=== PATIENT | female | born 1990 | race Caucasian/White ===

== ENCOUNTER → 2017-12-05 | Outpatient (CLI) | payer OTHER | END | disposition home or self-care (01) | LOC: C.LABSPEC 17:30 | PROVIDERS: ATTEND Obstetrics & Gynecology | DX: Z34.01 Encounter for supervision of normal first pregnancy, first trimester (principal) ==

== ENCOUNTER → 2017-12-12 | Outpatient (CLI) | payer OTHER | END | disposition home or self-care (01) | LOC: C.PAPS 14:18 | PROVIDERS: ATTEND Obstetrics & Gynecology | DX: Z34.01 Encounter for supervision of normal first pregnancy, first trimester (principal) ==

== ENCOUNTER → 2017-12-12 | Outpatient (CLI) | payer OTHER ==
[2017-12-12 14:29] LABS: BASO % 0.2 %; BASO ABS # 0.02 K/uL (0-0.2); EOS % 0.5 %; EOS ABS # 0.04 K/uL (0-0.5); HEMATOCRIT 37.8 % (37-47); HEMOGLOBIN 13.5 g/dL (12.0-16.0); IG# 0.02 K/uL (0.00-0.02); LYMPH % 24.4 %; LYMPH ABS # 2.12 K/uL (1.2-3.4); MEAN CORPUSCULAR HEMOGLOBIN 29.3 pg (25-34); MEAN CORPUSCULAR HGB CONC 35.7 g/dl (32-36); MEAN PLATELET VOLUME 10.8 fL (7.4-10.4); MONO % 6.8 %; MONO ABS # 0.59 K/uL (0.11-0.59); NEUT % 67.9 %; PLATELET COUNT 268 K/uL (130-400); RED CELL DISTRIBUTION WIDTH SD 39.4 fL (36.4-46.3); WHITE BLOOD COUNT 8.69 K/uL (4.8-10.8)
== END | disposition home or self-care (01) ==
LOC: C.LAB1850 12:32
PROVIDERS: ATTEND Obstetrics & Gynecology
DX: Z34.01 Encounter for supervision of normal first pregnancy, first trimester (principal)

== ENCOUNTER 2020-06-04 07:38 | Inpatient (IN) ==
[2020-06-04] MEDS ORDERED: OXYTOCIN 30 UNITS/500 ML BAG IV PRN ×3 (07:46→16:46)
[2020-06-04 08:22] LABS: Hematocrit (blood only) 38.1 % (37-47); Hemoglobin 12.8 g/dL (12.0-16.0); Mean Corpuscular Hemoglobin 29.9 pg (25-34); Mean Platelet Volume 11.8 fL (7.4-10.4); Platelet Count 188 K/uL (130-400); RDW Coefficient of Variation 13.4 % (11.5-14.5); RDW Standard Deviation 43.5 fL (36.4-46.3); Red Blood Count 4.28 M/uL (4.2-5.4); White Blood Count 9.35 K/uL (4.8-10.8)
[2020-06-04 08:24] LABS: Mean Corpuscular Hgb Conc 33.6 g/dL (32-36)
[2020-06-04] MEDS: LACTATED RINGER'S 1,000 ML IV PRN ×2 (08:56→14:03)
--- NOTE | 2020-06-04 08:59 | History & Physical Report ---
Date of Service June 04, 2020 Assessment & Plan (1) Encounter for planned induction of labor: Admission and Anticipated Discharge Date Admission Date: June 04, 2020 IUP at 41 weeks for IOL. cervical balloon successful will now proceed with pitocin induction. anticipate vaginal History of Present Illness Primary Care Provider: Clif Torres MD Patient is a 29 yo white female EDC 05/29/20 who presents for post term induction of labor. She had a cervical balloon placed last night that fell out about 0130. She had some contractions prior to the balloon falling out. (-) SPROM, (-) bloody show (-) GBS. Blood type A negative Allergies Allergy/AdvReac Type Severity Reaction Status Date / Time No Known Allergies Allergy Verified 06/03/20 19:43 Home Medications Home Medications Medication Instructions Recorded Confirmed Type prenat.vits,gerard,cer-bdlg-svftq 1 tab PO DAILY 10/15/19 06/04/20 History breast pump #1 ea 03/11/20 06/03/20 Rx Patient History Medical History Active labor at term Bladder infection Encounter for care or examination of lactating mother History of chicken pox History of UTI Normal course Post-term with 37 weeks completed gestation Rh negative state in antepartum period (spontaneous vaginal delivery) 07/2018 [facility] Surgical History History of colposcopy [place] teeth removed Family History Grandfather (Maternal) Heart disease Hypertension Grandfather (Paternal) Heart disease Mother Hypertension Social History Smoking Status: Never smoker Second Hand Exposure: No; Do You Dip or Chew Tobacco: No; Tobacco Cessation Education Requested by Patient: No Hx Alcohol Use: No Hx Substance Use: No Preferred Language: Latvian Communication Ability: Effective Unit Tender Required: No Beliefs That Will Affect Care: None marital status: marital status details: Everardo Benitez (25) [phone] Current Living Situation: Spouse Current Living Situation Comment: lives with spouse, daughter, dogs current occupational status: employed 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 Other Information That Helps Us Care for You: No Feels Safe at Home: Yes Safety Concerns: Feels Safe At This Time Assistive Devices: None Review of Systems All systems reviewed & are unremarkable except as noted in HPI & below Physical Exam Constitutional: WD/WN, vitals as above Respiratory: normal respiratory effort, lungs clear to auscultation Cardiovascular: RRR, no murmur, no edema Gastrointestinal (Abdomen): normal bowel sounds, soft, nontender, no hepatosplenomegaly Psychiatric: A+Ox3, euthymic affect Genitourinary: OB Exam Abdomen: + vertex, + estimated weight (8-9 pounds) and + irregular contractions Manual OB Exam: + cervical dilation 4 cm, + cervical effacement 80% and + station high OB Exam Monitor Tracing: + external FHT monitor used, + external uterine monitor used, + category I and + normal FHT variability Results & Data ([facility]) Vital Signs (Past 12 Hours) Vital Signs Temp Pulse Resp BP 06/04/20 08:05 98.4 F 80 18 123/70 06/04/20 07:55 80 123/70 Coding Level of Care Code None Diagnoses Encounter for planned induction of labor Z34.90
[2020-06-04] MEDS ORDERED: ePHEDrine sulfate 50 MG/ML AMP ONE (13:49)
[2020-06-04] MEDS ORDERED: SODIUM CHLORIDE 0.9% INJ 10 ML VIAL ONE (13:49)
[2020-06-04] MEDS ORDERED: fentaNYL citrate 100 MCG/2 ML VIAL ONE (13:50)
[2020-06-04] MEDS ORDERED: BUPIVACAINE 0.25% 30 ML VIAL ONE (13:50)
[2020-06-04] MEDS ORDERED: fentaNYL 2MCG/ML ROPIVACAINE 1.25MG/ML 100 ML BAG EPI ONE (13:51)
--- NOTE | 2020-06-04 14:04 | Anesthesiology Consultation ---
Date of Service June 04, 2020 Assessment & Plan (1) Encounter for pre-operative examination: Chart Review Chart Review: Acceptable Risk for Labor Epidural Consults Requested none ASA ASA2 Proposed Anesthesia Anesthesia Type: Labor Epidural Risk / Benefits Reviewed With: PT / POA / Parent / Guardian, Accepts Plan and Informed Consent Obtained History Height/Weight Height: 5 ft 7 in Weight: 86.183 kg Allergies Allergy/AdvReac Type Severity Reaction Status Date / Time No Known Allergies Allergy Verified 06/03/20 19:43 Medications Home Medications Medication Instructions Recorded Confirmed Last Taken prenat.vits,gerard,mlf-crmd-xuyaw 1 tab PO DAILY 10/15/19 06/04/20 06/03/20 21:30 breast pump #1 ea 03/11/20 06/03/20 Unknown Active Medications Generic Name Dose Route Start Last Admin Trade Name Freq PRN Reason Stop Dose Admin Lactated Ringer's 1,000 mls @ 125 mls/hr 06/04/20 07:46 06/04/20 14:03 Lr IV 06/06/20 07:45 999 mls/hr .Q8H PRN Administration L&D Protocol Protocol Oxytocin 30 units in 500 mls @ 11 mls/hr 06/04/20 07:49 06/04/20 12:35 Pitocin IV 06/06/20 07:48 0.66 units/hr .Q24H PRN 11 mls/hr Labor Induction/Augmentation Titration Protocol 0.66 UNITS/HR Past Medical History Medical History Active labor at term Bladder infection Encounter for care or examination of lactating mother History of chicken pox History of UTI Normal course Post-term with 37 weeks completed gestation Rh negative state in antepartum period (spontaneous vaginal delivery) 07/2018 [facility] Exercise / Class Metabolic Activity II 4-5 Yardwork/Stairs/Walk up hill Past Family History Family History Grandfather (Maternal) Heart disease Hypertension Grandfather (Paternal) Heart disease Mother Hypertension Past Surgical History Surgical History History of colposcopy [place] teeth removed Past Anesthesia History No Hx of Anesthesia Complications and No Family Hx of Anesthesia Complications History of PONV No Hx of PONV and No Hx of Motion Sickness Social History Smoking Status: Never smoker Do You Dip or Chew Tobacco: No Hx Alcohol Use: No Hx Substance Use: No substance use type: does not use Physical Exam Vital Signs Last Vital Signs Temp 98.4 F 06/04/20 08:05 Pulse 65 06/04/20 11:29 Resp 18 06/04/20 08:05 BP 116/67 06/04/20 11:29 ENMT Mouth: no dentition abnormality Thyromental Distance: > or= 3.5 Finger Breadths Mallampati Class: II Neck normal visual inspection Respiratory normal respiratory effort Auscultation: lungs clear to auscultation bilaterally Cardiovascular Rate/Rhythm: regular rate and regular rhythm Testing Laboratory Results 06/04/20 08:12
[2020-06-04] MEDS ORDERED: NALOXONE HCL 0.4 MG/1 ML VIAL/CARP IV PRN (14:31)
[2020-06-04] MEDS ORDERED: fentaNYL 2MCG/ML ROPIVACAINE 1.25MG/ML 100 ML BAG EPI PRN (14:31)
[2020-06-04] MEDS ORDERED: NALOXONE HCL 1 MG in SODIUM CHLORIDE 0.9% 1000ML 1,000 ML IV PRN (14:31)
[2020-06-04] MEDS ORDERED: diphenhydrAMINE 50 MG/ML VIAL IV PRN (14:31)
[2020-06-04] MEDS ORDERED: ePHEDrine sulfate 50 MG/ML AMP IV PRN (14:31)
[2020-06-04] MEDS ORDERED: ONDANSETRON INJ 2 MG/ML 2 ML VIAL IV PRN (14:31)
[2020-06-04] MEDS ORDERED: BENZOCAINE 20% AER SPR 82.5 GM CAN EXT PRN (16:46)
[2020-06-04] MEDS ORDERED: bisacodyL 10 MG SUPP PR PRN (16:46)
[2020-06-04] MEDS ORDERED: ACETAMINOPHEN 325 MG TAB PO PRN (16:46)
[2020-06-04] MEDS ORDERED: HYDROCORTISONE ACETATE 25 MG SUPP PR PRN (16:46)
[2020-06-04] MEDS ORDERED: SUPERCREAM 0.870% 15 GM JAR EXT PRN (16:46)
[2020-06-04] MEDS ORDERED: DIPHTHERIA/TETANUS/PERTUSSIS 0.5 ML SYR/VIAL IM ONE (16:46)
--- NOTE | 2020-06-04 19:52 | Delivery Summary ---
Vaginal Delivery Summary Date of Service June 04, 2020 patient is a 29-year-old 2 para 1-0-0-1 white female who presents for induction of labor for postterm . She had a cervical balloon placed successfully the night prior to the induction. She received Pitocin augmentation of her labor, and membranes were ruptured for clear fluid. She received effective epidural analgesia and progressed to full dilation. She pushed effectively over intact perineum for delivery of a viable female infant. The infant was vigorous and crying spontaneously. After 1 minute, the cord was clamped & cut. the placenta was expressed intact with a three-vessel cord. Perineum was examined and noted to be intact. Post bleeding was controlled with dilute Pitocin. Estimated blood loss is 200 cc. Mother and infant were doing well after delivery. [facility] Vaginal Delivery Charge Vaginal Delivery Codes: 51511 global code for the antepartum, delivery, and post-
[2020-06-04] MEDS: DOCUSATE SODIUM 100 MG CAP PO SCH (20:40)
[2020-06-05] MEDS: IBUPROFEN 600 MG TAB PO PRN ×4 (00:11→16:43)
--- NOTE | 2020-06-05 06:25 | Obstetrical Progress Note ---
Date of Service <Adalberto Barrett MD - Last Filed: 06/05/20 07:02> June 05, 2020 Assessment & Plan <Adalberto Barrett MD - Last Filed: 06/05/20 07:02> (1) : - PNL: Rh neg (received Rhogam), RI, GBS neg, COVID neg - Feels well today. Eating well, voiding well, ambulating well - Pain well controlled with ibuprofen 600mg Q4H PRN - Routine care -- OOB, ambulation, diet progression as tolerated - After discharge will have 6 week follow-up with Dr. Gilliland - Plan for discharge today (2) Need for rhogam due to Rh negative mother: Day #:: 1 Subjective <Adalberto Barrett MD - Last Filed: 06/05/20 07:02> Alma is a 29 y/o female who is PPD #1 following at 40 5/7 weeks. She reports feeling well overall this morning. Light abdominal cramping and minimal pain well managed on analgesics. Voiding well. Tolerating meals overnight without difficulty. Patient has been able to ambulate some. Has persistent lochia with some improvement this morning. Currently . Review of Systems Denies fever or chills. Denies shortness of breath or cough. Denies chest pain. Denies breast pain. Denies dysuria. Denies leg pain or leg swelling. Denies headache or changes in vision. Physical Exam <Adalberto Barrett MD - Last Filed: 06/05/20 07:02> General: Alert, oriented. No acute distress. Cardiac: Regular rate and rhythm. No murmurs. Respiratory: Clear to auscultation bilaterally a/p, no wheezes/rales/rhonchi. No increased work of breathing. Symmetrical chest rise. No respiratory distress. Abdomen: Soft, nontender, nondistended. Bowel sounds present. Uterus: Uterine fundus firm, palpable 1 cm below umbilicus. Lower Extremities: No lower extremity edema or swelling. No deep calf pain. Abhilash's negative bilaterally. Results & Data ([facility]) <Adalberto Barrett MD - Last Filed: 06/05/20 07:02> Vital Signs (Past 12 Hours) Vital Signs Temp Pulse Pulse Resp BP BP Pulse Ox 06/05/20 04:20 36.6 C 65 15 137/77 96 06/05/20 00:00 37.0 C 72 17 127/75 96 06/04/20 19:35 37.0 C 80 16 118/62 96 06/04/20 18:51 72 119/60 06/04/20 18:50 72 18 119/60 06/04/20 18:36 98 H 123/63 <Blanquita Mansfield MD, FACOG - Last Filed: 06/05/20 07:43> Co-Signing Physician Notes Resident Physician Supervision Note: I was present with Dr. Osman during the history and exam. I discussed the case with the resident and agree with the findings and plan as documented in the note. Any exceptions or clarifications are listed here: [None] Documented By: Blanquita Mansfield MD, FACOG Resident Activity Tracking <Adalberto Barrett MD - Last Filed: 06/05/20 07:02> Resident Involvement: Resident Care Provided Care Provided: OB Delivery
[2020-06-05 06:52] LABS: Hematocrit (blood only) 35.2 % (37-47); Hemoglobin 11.9 g/dL (12.0-16.0); Mean Corpuscular Hemoglobin 30.2 pg (25-34); Mean Corpuscular Hgb Conc 33.8 g/dL (32-36); Mean Corpuscular Volume 89.3 fL (80-100); Mean Platelet Volume 11.6 fL (7.4-10.4); Platelet Count 136 K/uL (130-400); RDW Coefficient of Variation 13.3 % (11.5-14.5); RDW Standard Deviation 43.5 fL (36.4-46.3); Red Blood Count 3.94 M/uL (4.2-5.4); White Blood Count 10.17 K/uL (4.8-10.8)
[2020-06-05] MEDS: DOCUSATE SODIUM 100 MG CAP PO SCH (07:29)
[2020-06-05] MEDS ORDERED: PRENATAL VITAMIN 1 TAB PO SCH (08:00)
[2020-06-05 11:55] VITALS: TEMP 98.1
[2020-06-05 16:56] VITALS: BP 126/72; PULSE 65; O2SAT 96
[2020-06-05] MEDS ORDERED: bisacodyL 5 MG TABEC PO SCH (20:00)
== END 2020-06-05 17:40 | disposition home or self-care (01) | DRG 807 ==
LOC: 4S1 07:38 → 4S2 19:15

== ENCOUNTER 2022-06-01 07:44 | Inpatient (IN) ==
[2022-06-01] MEDS ORDERED: OXYTOCIN 30 UNITS/500 ML BAG IV PRN ×3 (07:58→18:27)
[2022-06-01] MEDS ORDERED: LIDOCAINE 1% LOCAL 20 ML VIAL INFIL PRN (07:58)
[2022-06-01 08:41] LABS: Hematocrit (blood only) 35.8 % (34.1-44.9); Hemoglobin 12.6 g/dl (12.0-16.0); Mean Corpuscular Hemoglobin 30.2 pg (25.0-34.0); Mean Corpuscular Hgb Conc 35.2 g/dL (32.0-36.0); Mean Corpuscular Volume 85.9 fL (80.0-100.0); Mean Platelet Volume 11.8 fL (9.4-12.3); Platelet Count 161 K/uL (130-400); RDW Coefficient of Variation 13.3 % (11.5-14.5); RDW Standard Deviation 41.7 fL (36.4-46.3); Red Blood Count 4.17 M/uL (3.93-5.22)
[2022-06-01] MEDS: LACTATED RINGER'S 1,000 ML IV PRN ×3 (09:12→16:46)
--- NOTE | 2022-06-01 10:33 | History & Physical Report ---
Date of Service June 01, 2022 Assessment & Plan (1) Encounter for supervision of normal in multigravida: Plan: IUP at 39 weeks in mulitparous female for IOL pitocin augmentation begun, will AROM when adequate pattern of contractions established epidural analgesia when requested anticipate vaginal . Admission and Anticipated Discharge Date Admission Date: June 01, 2022 History of Present Illness Primary Care Provider: Clif Torres MD Patient is a 31 yo female EDC 06/04/22 who presents at 39 + weeks for IOL because of suspected macrosomia and patient's request. a cervical balloon was placed last night and fell out almost immediately after insertion. no contractions or leaking fluid over night although there has been some bloody show. GBS-negative, blood type A-negative. complicated by presence of a placental cole and suspected macrosomia. 36 week EFW is 90%tile with AC measuring 98%tile. Allergies Allergy/AdvReac Type Severity Reaction Status Date / Time No Known Allergies Allergy Verified 05/31/22 10:51 Home Medications Medication Instructions Recorded Confirmed Type prenat.vits,gerard,tnz-ymsu-hrwsm 1 tab PO DAILY 10/15/19 06/01/22 History Patient History Medical History Active labor at term Bladder infection Encounter for care or examination of lactating mother History of chicken pox History of UTI Normal course Post-term with 37 weeks completed gestation Rh negative state in antepartum period (spontaneous vaginal delivery) Surgical History History of colposcopy [place] teeth removed Family History (Updated 10/23/21 @ 09:53 by Viridiana Mcdonald) Grandfather (Maternal) Heart disease Hypertension Grandfather (Paternal) Heart disease Mother Hypertension Denies family history of Ovarian cancer Breast cancer Colorectal cancer Social History (Updated 10/23/21 @ 09:53 by Viridiana Mcdonald) Smoking Status: Never smoker Second Hand Exposure: No; Hx Alcohol Use: No Hx Substance Use: No Preferred Language: Kyrgyz Communication Ability: Effective Comprehensive Advisor Required: No Beliefs That Will Affect Care: None marital status: marital status details: Everardo Emmanuel (27) [phone] Current Living Situation: Spouse Current Living Situation Comment: lives with spouse, daughters, dogs current occupational status: employed 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 Other Information That Helps Us Care for You: No Feels Safe at Home: Yes Safety Concerns: Feels Safe At This Time Assistive Devices: None Review of Systems All systems reviewed & are unremarkable except as noted in HPI & below Physical Exam Constitutional: WD/WN, vitals as above Psychiatric: A+Ox3, euthymic affect Genitourinary: OB Exam Abdomen: + vertex, + estimated weight (8-9 pounds) and + irregular contractions Manual OB Exam: + cervical dilation 3 cm, + cervical effacement 70% and + station high (-3) OB Exam Monitor T racing: + external FHT monitor used, + external uterine monitor used, + category I and + normal FHT variability Results & Data ([facility]) Vital Signs (Past 12 Hours) Vital Signs Temp Pulse Resp BP 06/01/22 08:07 18 06/01/22 10:25 67 118/62 06/01/22 08:30 20 06/01/22 08:30 98.2 F 20 06/01/22 08:30 20 06/01/22 08:30 98.2 F 20 06/01/22 08:04 101 H 137/75 Coding Level of Care Code None Diagnoses Encounter for supervision of normal in multigravida Z34.80
[2022-06-01] MEDS ORDERED: ePHEDrine sulfate 50 MG/ML AMP ONE (12:59)
[2022-06-01] MEDS ORDERED: fentaNYL citrate 100 MCG/2 ML VIAL ONE (13:00)
[2022-06-01] MEDS ORDERED: SODIUM CHLORIDE 0.9% INJ 10 ML VIAL ONE (13:00)
[2022-06-01] MEDS ORDERED: BUPIVACAINE 0.25% 30 ML VIAL ONE (13:00)
[2022-06-01] MEDS ORDERED: fentaNYL 2MCG/ML ROPIVACAINE 1.25MG/ML 100 ML BAG EPI ONE (13:01)
[2022-06-01] MEDS ORDERED: LIDOCAINE 2%/EPINEPHRINE 1:200,000 20 ML SDV ONE (13:01)
--- NOTE | 2022-06-01 14:13 | Anesthesiology Consultation ---
Date of Service June 01, 2022 Assessment & Plan Chart Review Chart Review: Acceptable Risk for Labor Epidural Consults Requested none ASA ASA2 Proposed Anesthesia Anesthesia Type: Labor Epidural Risk / Benefits Reviewed With: PT / POA / Parent / Guardian, Accepts Plan and Informed Consent Obtained History Height/Weight Height: 5 ft 7 in Weight: 90.265 kg Allergies Allergy/AdvReac Type Severity Reaction Status Date / Time No Known Allergies Allergy Verified 05/31/22 10:51 Medications Home Medications Medication Instructions Recorded Confirmed Last Taken prenat.vits,gerard,wse-tczr-wddrt 1 tab PO DAILY 10/15/19 06/01/22 05/30/22 Active Medications Generic Name Dose Route Start Last Admin Trade Name Freq PRN Reason Stop Dose Admin Oxytocin 30 units in 500 mls @ 11 mls/hr 06/01/22 07:58 06/01/22 12:33 Pitocin IV 06/03/22 07:57 0.66 units/hr .Q24H PRN 11 mls/hr Labor Induction/Augmentation Titration Protocol 0.66 UNITS/HR Lactated Ringer's 1,000 mls @ 125 mls/hr 06/01/22 07:58 06/01/22 09:12 Lr IV 06/03/22 07:57 125 mls/hr .Q8H PRN Administration L&D Protocol Protocol Past Medical History Medical History Active labor at term Bladder infection Encounter for care or examination of lactating mother History of chicken pox History of UTI Normal course Post-term with 37 weeks completed gestation Rh negative state in antepartum period (spontaneous vaginal delivery) 07/2018 [facility] Exercise / Class Metabolic Activity II 4-5 Yardwork/Stairs/Walk up hill Past Family History Family History Grandfather (Maternal) Heart disease Hypertension Grandfather (Paternal) Heart disease Mother Hypertension Denies family history of Ovarian cancer Breast cancer Colorectal cancer Past Surgical History Surgical History History of colposcopy [place] teeth removed Past Anesthesia History No Hx of Anesthesia Complications and No Family Hx of Anesthesia Complications History of PONV No Hx of PONV and No Hx of Motion Sickness Social History Smoking Status: Never smoker Hx Alcohol Use: No Hx Substance Use: No substance use type: does not use Physical Exam Vital Signs Last Vital Signs Temp 98.1 F 06/01/22 11:00 Pulse 66 06/01/22 14:05 Resp 20 06/01/22 10:00 BP 117/69 06/01/22 12:36 Pulse Ox 97 06/01/22 14:05 ENMT Mouth: no dentition abnormality Thyromental Distance: > or= 3.5 Finger Breadths Mallampati Class: II Neck normal visual inspection Respiratory normal respiratory effort Auscultation: lungs clear to auscultation bilaterally Cardiovascular Rate/Rhythm: regular rate and regular rhythm Testing Laboratory Results 06/01/22 08:28 Blood Type A Negative 06/01/22 08:28 Antibody Screen NEGATIVE 06/01/22 08:28
[2022-06-01] MEDS ORDERED: NALBUPHINE HCL INJ 10 MG/ML AMP IV PRN (14:33)
[2022-06-01] MEDS ORDERED: NALOXONE HCL 1 MG in SODIUM CHLORIDE 0.9% 1000ML 1,000 ML IV PRN (14:33)
[2022-06-01] MEDS ORDERED: fentaNYL 2MCG/ML ROPIVACAINE 1.25MG/ML 100 ML BAG EPI PRN (14:33)
[2022-06-01] MEDS ORDERED: diphenhydrAMINE 50 MG/ML VIAL IV PRN (14:33)
[2022-06-01] MEDS ORDERED: ONDANSETRON INJ 2 MG/ML 2 ML VIAL IV PRN (14:33)
[2022-06-01] MEDS ORDERED: NALOXONE HCL 0.4 MG/1 ML VIAL/CARP IV PRN (14:33)
[2022-06-01] MEDS ORDERED: ePHEDrine sulfate 50 MG/ML AMP IV PRN (14:33)
[2022-06-01] MEDS ORDERED: NURSING L&D Epidural Breakthrough Pain Update ONE (16:28)
[2022-06-01] MEDS ORDERED: oxyCODONE/ACETAMINOPHEN 5mg/325mg TAB PO PRN (18:27)
[2022-06-01] MEDS ORDERED: ACETAMINOPHEN 325 MG TAB PO PRN (18:27)
[2022-06-01] MEDS ORDERED: bisacodyL 10 MG SUPP PR PRN (18:27)
[2022-06-01] MEDS ORDERED: HYDROCORTISONE ACETATE 25 MG SUPP PR PRN (18:27)
[2022-06-01] MEDS ORDERED: DIPHTHERIA/TETANUS/PERTUSSIS 0.5 ML SYR/VIAL IM ONE (18:27)
[2022-06-01] MEDS ORDERED: BENZOCAINE 20% AER SPR 82.5 GM CAN EXT PRN (18:27)
--- NOTE | 2022-06-01 20:11 | Delivery Summary ---
Vaginal Delivery Summary Date of Service June 01, 2022 Vaginal Delivery Summary [facility] Patient is a 31-year-old 3 para 2-0-0-2 female who had presented for induction because of suspected macrosomia. She received a cervical balloon the night before and we presented this morning for Pitocin augmentation of her labor. Membranes were ruptured for clear fluid after she received effective epidural analgesia. She progressed to full dilation. She pushed effectively over intact perineum for delivery of a viable female infant. After the head was delivered the rest the infant delivered easily and was placed on the mother's abdomen for further attention and drying. The infant was vigorous and moving all 4 limbs. Placenta was expressed intact with a three-vessel cord. There were superficial abrasions on the labia that were not bleeding and therefore not repaired. Estimated blood loss was 200 cc. bleeding was controlled with dilute Pitocin and fundal massage. Mother and were doing well after delivery. [facility] Vaginal Delivery Charge Delivery Type Details: [facility]
--- NOTE | 2022-06-01 20:41 | Anesthesia Procedure Note ---
Date of Service June 01, 2022 Anesthesia Post Epidural Note Vital Signs Vital Signs: Temp Pulse Resp BP Pulse Ox 98.4 F 77 16 123/65 97 06/01/22 19:02 06/01/22 20:16 06/01/22 19:46 06/01/22 20:16 06/01/22 18:10 Notes Mental Status: alert / awake / arousable and participated in evaluation Nausea / Vomiting: adequately controlled Pain: adequately controlled Airway Patency, RR, SpO2: stable & adequate BP & HR: stable & adequate Hydration State: stable & adequate Neuraxial Anesthesia: was administered and sensory block is resolving Anesthetic Complications: no major complications apparent and Pt Satisfied with anesthetic care Epidural: Removed without complications and With tip intact
[2022-06-01] MEDS: DOCUSATE SODIUM 100 MG CAP PO SCH (22:45)
[2022-06-01] MEDS: IBUPROFEN 600 MG TAB PO PRN (22:45)
[2022-06-02] MEDS: IBUPROFEN 600 MG TAB PO PRN ×4 (03:26→15:44)
--- NOTE | 2022-06-02 05:54 | Obstetrical Progress Note ---
Date of Service <Kim SBraeden Tellez DO - Last Filed: 06/02/22 06:41> June 02, 2022 Assessment & Plan <Kim Balderas DO Geoff - Last Filed: 06/02/22 06:41> (1) Status post vaginal delivery: continue OOB, ambulation, diet as tolerated <Blanquita Mansfield MD, FACOG - Last Filed: 06/02/22 08:10> (1) Status post vaginal delivery: continue OOB, ambulation, diet as tolerated patient would like to be discharged if baby is discharged today follow up in 6 weeks Subjective <Kim S. DO Geoff - Last Filed: 06/02/22 06:41> Alma is a 31 y/o female who is now PPD # 1 following spontaneous vaginal delivery at 39 4/7 weeks. Reports feeling well overall this morning. Mild abdominal cramping & pain well managed on analgesics. Voiding. Tolerating meals overnight and able to ambulate some. Some persistent lochia with some improvement this morning. Breast feeding. Review of Systems Denies fever, chills, sweats Denies shortness of breath, difficulty breathing, chest pain, palpitations, chest pressure. Denies breast pain. Denies dysuria. Denies headache or changes in vision. Physical Exam <Kim SBraeden Tellez DO - Last Filed: 06/02/22 06:41> General: Alert, oriented. No acute distress. Cardiac: Regular rate and rhythm, no murmurs/rubs/gallops. Respiratory: Clear to auscultation bilaterally a/p, no wheezes/rales/rhonchi. No increased work of breathing. Symmetrical chest rise. No respiratory distress. Abdomen: Soft, nontender, nondistended. Uterus: Uterine fundus firm, palpable 2 cm below umbilicus. Lower Extremities: No lower extremity edema or swelling. No deep calf pain. Abhilash's negative bilaterally. Results & Data ([facility]) <Kim Balderas DO Geoff - Last Filed: 06/02/22 06:41> Vital Signs (Past 12 Hours) Vital Signs Temp Pulse Pulse Resp BP BP Pulse Ox 06/02/22 03:50 36.6 C 67 16 123/80 96 06/01/22 22:00 37.2 C 69 18 114/72 95 06/01/22 23:15 36.7 C 67 18 128/74 96 06/01/22 20:16 36.9 C 18 06/01/22 19:46 16 06/01/22 19:17 16 06/01/22 19:02 36.9 C 16 06/01/22 18:47 16 06/01/22 18:32 16 06/01/22 18:17 18 06/01/22 20:16 77 123/65 06/01/22 20:01 64 119/66 06/01/22 19:46 86 128/71 06/01/22 19:31 72 115/66 06/01/22 19:01 60 133/60 06/01/22 18:59 57 L 138/67 06/01/22 18:31 69 101/72 06/01/22 18:17 70 126/58 L 06/01/22 18:10 75 97 06/01/22 18:06 71 90 06/01/22 18:05 73 99 06/01/22 18:00 68 98 06/01/22 17:59 77 91 06/01/22 17:55 57 L 98 O2 Del Method 06/02/22 03:50 Room Air 06/01/22 22:00 Room Air 06/01/22 23:15 Room Air 06/01/22 20:16 06/01/22 19:46 06/01/22 19:17 06/01/22 19:02 06/01/22 18:47 06/01/22 18:32 06/01/22 18:17 06/01/22 20:16 06/01/22 20:01 06/01/22 19:46 06/01/22 19:31 06/01/22 19:01 06/01/22 18:59 06/01/22 18:31 06/01/22 18:17 06/01/22 18:10 06/01/22 18:06 06/01/22 18:05 06/01/22 18:00 06/01/22 17:59 06/01/22 17:55 <Blanquita Mansfield MD, FACOG - Last Filed: 06/02/22 08:10> Co-Signing Physician Notes Resident Physician Supervision Note: I interviewed and examined the patient. Discussed with Dr. Tellez and agree with findings and plan as documented in the note. Any exceptions or clarifications ar e listed here: [None] Documented By: Blanquita Mansfield MD, FACOG Resident Activity Tracking <Kim Tellez, DO - Last Filed: 06/02/22 06:41> Resident Involvement: Resident Care Provided Care Provided: OB Delivery (Post )
[2022-06-02 07:15] LABS: Hematocrit (blood only) 36.9 % (34.1-44.9); Hemoglobin 12.8 g/dl (12.0-16.0); Mean Corpuscular Hemoglobin 30.1 pg (25.0-34.0); Mean Corpuscular Hgb Conc 34.7 g/dL (32.0-36.0); Mean Corpuscular Volume 86.8 fL (80.0-100.0); Mean Platelet Volume 12.1 fL (9.4-12.3); Platelet Count 144 K/uL (130-400); RDW Coefficient of Variation 13.3 % (11.5-14.5); RDW Standard Deviation 41.8 fL (36.4-46.3); Red Blood Count 4.25 M/uL (3.93-5.22); White Blood Count 10.08 K/ul (4.8-10.8)
[2022-06-02] MEDS: DOCUSATE SODIUM 100 MG CAP PO SCH (07:35)
[2022-06-02] MEDS ORDERED: PRENATAL VITAMIN 1 TAB PO SCH (08:00)
[2022-06-02] MEDS ORDERED: bisacodyL 5 MG TABEC PO SCH (20:00)
== END 2022-06-02 18:45 | disposition home or self-care (01) | DRG 807 ==
LOC: 4S1 07:44 → 4E2 20:30

== ENCOUNTER 2024-06-12 07:53 | Inpatient (IN) ==
[2024-06-12] MEDS ORDERED: LIDOCAINE 1% LOCAL 20 ML VIAL INFIL PRN (08:21)
[2024-06-12] MEDS ORDERED: OXYTOCIN 30 UNITS/NSS 30 UNITS/500 ML BAG IV PRN ×2 (08:21→17:03)
[2024-06-12] MEDS ORDERED: CALCIUM CARBONATE 500 MG CHEWABLE TAB PO PRN (08:21)
--- NOTE | 2024-06-12 08:46 | History & Physical Report ---
Date of Service June 12, 2024 Assessment & Plan (1) Encounter for supervision of normal in multigravida: Plan: IUP at 40 weeks for IOL pitocin per L&D induction protocol begin PCN G prophylaxis epidural when requested anticipate vaginal Admission and Anticipated Discharge Date Admission Date: June 12, 2024 History of Present Illness Primary Care Provider: NO PCP patient is a 33 yo female EDC 06/12/24 who presents at 40 weeks for IOL. uncomplicated. GBS (+) blood type A- negative Allergies Allergy/AdvReac Type Severity Reaction Status Date / Time No Known Allergies Allergy Verified 06/12/24 08:04 Home Medications Medication Instructions Recorded Confirmed Type prenat.vits,gerard,rtd-bjca-qvcbf 1 tab PO DAILY 10/15/19 06/12/24 History Breast Pump #1 ea 04/19/24 06/11/24 Rx oxycodone-acetaminophen 5 mg-325 1 tab PO Q8H PRN pain #3 tabs 05/21/24 06/12/24 Rx mg tablet (Percocet) Patient History Medical History Encounter for pre-operative examination History of chicken pox (spontaneous vaginal delivery) Bladder infection History of UTI Surgical History History of colposcopy [place] teeth removed Family History Grandfather (Maternal) Heart disease Hypertension Grandfather (Paternal) Heart disease Mother Hypertension Denies family history of Ovarian cancer Breast cancer Colorectal cancer Social History Smoking Status: Never smoker Second Hand Exposure: No; Do You Dip or Chew Tobacco: No; Hx Alcohol Use: No Hx Substance Use: No Preferred Language: Yoruba Communication Ability: Effective Screener And Blender Operator Required: No Beliefs That Will Affect Care: None marital status: marital status details: Everardo Benitez (30) [phone] Current Living Situation: Spouse and Family Current Living Situation Comment: Patient lives with spouse, 3 children, dogs current occupational status: employed 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 Feels Safe at Home: Yes Safety Concerns: Feels Safe At This Time Assistive Devices: None Review of Systems All systems reviewed & are unremarkable except as noted in HPI & below Physical Exam Constitutional: WD/WN, vitals as above Psychiatric: A+Ox3, euthymic affect Genitourinary: OB Exam Abdomen: + vertex (by ultrasound this morning), + estimated weight (8-9 pounds) and + irregular contractions Manual OB Exam: + cervical dilation 2 cm, + cervical effacement 50% and + station high (- 3) OB Exam Monitor Tracing: + external FHT monitor used, + external uterine monitor used, + category I and + normal FHT variability Results & Data Vital Signs (Past 12 Hours) Vital Signs Temp Pulse Resp BP 06/12/24 08:15 105 H 06/12/24 08:15 130/66 06/12/24 08:05 98.2 F 18 06/12/24 08:00 114 H 142/74 H Code Status & VTE Plan VTE Prophylaxis Plan VTE Prophylaxis will be ordered: No Coding Level of Care Code 64496 INT INP/OBS CARE 1/40MIN Diagnoses Encounter for supervision of normal in multigravida Z34.80
[2024-06-12] MEDS: PENICILLIN GK 6 MU in DEXTROSE 5% 250 ML IV STA (08:49)
[2024-06-12 08:50] LABS: Hematocrit (blood only) 34.9 % (37.0-47.0); Hemoglobin 12.1 g/dl (12.0-16.0); Mean Corpuscular Hemoglobin 29.1 pg (25.0-34.0); Mean Corpuscular Hgb Conc 34.7 g/dL (32.0-36.0); Mean Corpuscular Volume 83.9 fL (80.0-100.0); Mean Platelet Volume 11.8 fL (9.4-12.4); Platelet Count 137 K/uL (130-400); RDW Coefficient of Variation 14.5 % (11.5-14.5); RDW Standard Deviation 43.6 fL (36.4-46.3); Red Blood Count 4.16 M/uL (4.20-5.40); White Blood Count 7.43 K/ul (4.8-10.8)
[2024-06-12] MEDS: OXYTOCIN 30 UNITS/NSS 30 UNITS/500 ML BAG IV PRN (09:05)
[2024-06-12] MEDS: PENICILLIN GK 3 MU in DEXTROSE 5% 100 ML IV PRN (12:24)
[2024-06-12] MEDS: LACTATED RINGER'S 1,000 ML IV SCH (13:25)
[2024-06-12] MEDS ORDERED: fentaNYL citrate PF 100 MCG/2 ML VIAL EPI PRN (13:31)
[2024-06-12] MEDS ORDERED: NALBUPHINE HCL INJ 10 MG/ML AMP IV PRN (13:31)
[2024-06-12] MEDS ORDERED: diphenhydrAMINE 50 MG/ML VIAL IV PRN (13:31)
[2024-06-12] MEDS ORDERED: SODIUM CHLORIDE 0.9% PF INJ 10 ML VIAL EPI PRN (13:31)
[2024-06-12] MEDS ORDERED: BUPIVACAINE 0.25% PF 30 ML VIAL EPI PRN (13:31)
[2024-06-12] MEDS ORDERED: LIDOCAINE 2% MPF LOCAL 5 ML VIAL EPI PRN (13:31)
[2024-06-12] MEDS ORDERED: NALOXONE HCL 0.4 MG/1 ML VIAL/CARP IV PRN (13:31)
[2024-06-12] MEDS ORDERED: NALOXONE HCL 1 MG in SODIUM CHLORIDE 0.9% 1,000 ML IV PRN (13:31)
[2024-06-12] MEDS ORDERED: ROPIVACAINE 0.5% PF 5 MG/ML 20 ML VIAL EPI PRN (13:31)
[2024-06-12] MEDS ORDERED: fentANYL 2 MCG/ML BUPIVacaine 0.125%-NSS 100ML BAG EPI PRN (13:31)
[2024-06-12] MEDS ORDERED: ePHEDrine sulfate 50 MG/ML AMP IV PRN (13:31)
--- NOTE | 2024-06-12 13:41 | Anesthesiology Consultation ---
Date of Service June 12, 2024 Assessment & Plan Chart Review Chart Review: Patient NOT seen in Pre Admission Testing and Acceptable Risk for Labor Epidural Consults Requested none ASA ASA2 Proposed Anesthesia Anesthesia Type: Labor Epidural Risk / Benefits Reviewed With: PT / POA / Parent / Guardian, Accepts Plan and Informed Consent Obtained History Height/Weight Height: 5 ft 7 in Weight: 94.347 kg Allergies Allergy/AdvReac Type Severity Reaction Status Date / Time No Known Allergies Allergy Verified 06/12/24 08:04 Medications Home Medications Medication Instructions Recorded Confirmed Last Taken prenat.vits,gerard,kfh-hugb-ehuoy 1 tab PO DAILY 10/15/19 06/12/24 05/30/22 Breast Pump #1 ea 04/19/24 06/11/24 Unknown oxycodone-acetaminophen 5 mg-325 1 tab PO Q8H PRN pain #3 tabs 05/21/24 06/12/24 Unknown mg tablet (Percocet) Active Medications Generic Name Dose Route Start Last Admin Trade Name Freq PRN Reason Stop Dose Admin Oxytocin 30 units in 500 mls @ 16 mls/hr 06/12/24 08:21 06/12/24 13:35 Pitocin 30 Units/Nss IV 06/14/24 08:20 0.96 units/hr .Q24H PRN 16 mls/hr Labor Induction/Augmentation Titration Protocol 0.96 UNITS/HR Penicillin G Potassium 3 mu/ 106 mls @ 100 mls/hr 06/12/24 11:21 06/12/24 12:24 Dextrose IV 06/22/24 11:20 100 mls/hr Q4H PRN Administration GBS(+) Until Delivery NPO Date Last Intake of Fluids: 06/12/24 Time Last Intake of Fluids: 13:00 Date Last Intake of Solids: 06/12/24 Time Last Intake of Solids: 07:15 Past Medical History Medical History Encounter for pre-operative examination History of chicken pox (spontaneous vaginal delivery) Bladder infection History of UTI Exercise / Class Metabolic Activity 1 > 8 Run/Swim/Ski/Tennis Past Family History Family History Grandfather (Maternal) Heart disease Hypertension Grandfather (Paternal) Heart disease Mother Hypertension Denies family history of Ovarian cancer Breast cancer Colorectal cancer Past Surgical History Surgical History History of colposcopy Shafer teeth removed Past Anesthesia History No Hx of Anesthesia Complications and No Family Hx of Anesthesia Complications History of PONV No Hx of PONV and No Hx of Motion Sickness Social History Smoking Status: Never smoker Do You Dip or Chew Tobacco: No Hx Alcohol Use: No Hx Substance Use: No substance use type: does not use Review of Systems ROS Unobtainable: All systems reviewed & are unremarkable except as noted in HPI & below Physical Exam Vital Signs Last Vital Signs Temp 36.8 C 06/12/24 09:09 Pulse 70 06/12/24 13:13 Resp 18 06/12/24 09:09 BP 117/76 06/12/24 13:13 ENMT Mouth: no TMJ abnormality Thyromental Distance: > or= 3.5 Finger Breadths Mallampati Class: II Neck normal visual inspection and trachea midline; neck extension not limited Respiratory normal respiratory effort Auscultation: lungs clear to auscultation bilaterally Cardiovascular Rate/Rhythm: regular rate and regular rhythm Heart Sounds: no murmur Musculoskeletal Spine: normal cervical ROM Extremities: full ROM of extremities Neurologic moves all extremities Psychiatric Orientation: alert and oriented x 3 Testing Laboratory Results 06/12/24 08:31
[2024-06-12] MEDS: LIDOCAINE 2%/EPINEPHRINE 1:200,000 20 ML PF ONE (13:53)
[2024-06-12] MEDS: BUPIVACAINE 0.25% PF 30 ML VIAL ONE (13:53)
[2024-06-12] MEDS: SODIUM CHLORIDE 0.9% PF INJ 10 ML VIAL ONE (13:53)
[2024-06-12] MEDS: fentaNYL citrate PF 100 MCG/2 ML VIAL ONE (13:54)
[2024-06-12] MEDS: fentANYL 2 MCG/ML BUPIVacaine 0.125%-NSS 100ML BAG ONE (13:55)
[2024-06-12] MEDS: BUPIVACAINE 0.25% PF 30 ML VIAL EPI STA (14:04)
[2024-06-12] MEDS: LIDOCAINE 2%/EPINEPHRINE 1:200,000 20 ML PF EPI STA (14:04)
[2024-06-12] MEDS: fentaNYL citrate PF 100 MCG/2 ML VIAL EPI STA (14:04)
[2024-06-12] MEDS: SODIUM CHLORIDE 0.9% PF INJ 10 ML VIAL EPI STA (14:05)
[2024-06-12] MEDS ORDERED: oxyCODONE/ACETAMINOPHEN 5mg/325mg TAB PO PRN (17:03)
[2024-06-12] MEDS ORDERED: bisacodyL 10 MG SUPP PR PRN (17:03)
[2024-06-12] MEDS ORDERED: HYDROCORTISONE ACETATE 25 MG SUPP PR PRN (17:03)
[2024-06-12] MEDS ORDERED: BENZOCAINE 20% SPRY 85 APPLN/85 GM CAN EXT PRN (17:03)
[2024-06-12] MEDS ORDERED: ACETAMINOPHEN 325 MG TAB PO PRN (17:03)
--- NOTE | 2024-06-12 17:07 | Delivery Summary ---
Vaginal Delivery Summary Date of Service June 12, 2024 Vaginal Delivery Summary Patient is a 33-year-old 4 para 3-0-0-3 female EDC of 06/12/2024 who presented for induction of labor. Pitocin induction was begun per labor and delivery protocol. She received 2 doses of penicillin G for GBS prophylaxis. She requested epidural analgesia and it was effective. Membranes were ruptured for clear fluid. She progressed to full dilation and pushed effectively through 1 contraction for delivery of a viable male . After the head was delivered, the rest of the infant was delivered without maternal effort. He was vigorous crying moving all 4 limbs upon delivery. He was placed on the mother's abdomen for further attention and drying. After 1 minute, the cord was clamped and cut. After cord blood was obtained, placenta was expressed intact with a three-vessel cord. bleeding was controlled with dilute Pitocin and fundal massage. Of note there was a true knot in the cord. There was a superficial abrasion on superior portion of the left inner labia which was not bleeding and therefore not repaired. QBL is 200 mL. Mother and doing well after delivery. [facility] Vaginal Delivery Charge Delivery Type Details: [facility]
[2024-06-12] MEDS: ePHEDrine sulfate 50 MG/ML AMP ONE (17:29)
[2024-06-12] MEDS: DOCUSATE SODIUM 100 MG CAP PO SCH (20:33)
[2024-06-12] MEDS: IBUPROFEN 600 MG TAB PO PRN (20:33)
[2024-06-13] MEDS: ACETAMINOPHEN 325 MG TAB PO PRN (05:48)
[2024-06-13 06:13] LABS: Hematocrit (blood only) 34.7 % (37.0-47.0); Hemoglobin 11.9 g/dl (12.0-16.0); Mean Corpuscular Hemoglobin 29.2 pg (25.0-34.0); Mean Corpuscular Hgb Conc 34.3 g/dL (32.0-36.0); Mean Corpuscular Volume 85.3 fL (80.0-100.0); Mean Platelet Volume 12.5 fL (9.4-12.4); Platelet Count 113 K/uL (130-400); RDW Coefficient of Variation 14.5 % (11.5-14.5); RDW Standard Deviation 44.9 fL (36.4-46.3); Red Blood Count 4.07 M/uL (4.20-5.40); White Blood Count 10.43 K/ul (4.8-10.8)
--- NOTE | 2024-06-13 06:58 | Obstetrical Progress Note ---
Date of Service June 13, 2024 Assessment & Plan (1) Encounter for care and examination after delivery: satisfactory progress GBS(+) and had 2 doses PCN continue current care plan discharge to home later today if baby discharged Subjective Ambulation: ambulating normally Voiding: no voiding problems Passing Gas:: Yes Diet Tolerance:: regular diet Lochia:: Small Feeding Type:: breast feeding cramping with nursing but otherwise doing well Review of Systems All systems reviewed & are unremarkable except as noted in HPI & below Physical Exam Constitutional WD/WN, vitals as above Psychiatric A+Ox3, euthymic affect Genitourinary OB Exam Abdomen: + fundal height Fundus: + firm and + relation to umbilicus (@U) Results & Data Vital Signs (Past 12 Hours) Vital Signs Temp Pulse Resp BP Pulse Ox O2 Del Method 06/13/24 03:05 97.9 F 62 16 122/75 96 Room Air 06/12/24 23:12 97.7 F 66 18 118/70 94 Room Air 06/12/24 20:20 98.4 F 88 18 119/75 96 Room Air
[2024-06-13] MEDS: PRENATAL VITAMIN 1 TAB PO SCH (07:29)
[2024-06-13 08:53] VITALS: O2SAT 97
[2024-06-13] MEDS ORDERED: DIPHTHER/TETAN/PERTUS Vaccine (Tdap, Adol/Adult) 0.5mL IM ONE (09:00)
[2024-06-13 12:31] VITALS: BP 128/81; TEMP 97.9
[2024-06-13 13:00] VITALS: PULSE 70; RESP 18
[2024-06-13] MEDS ORDERED: bisacodyL 5 MG TABEC PO SCH (20:00)
== END 2024-06-13 18:10 | disposition home or self-care (01) | DRG 807 ==
LOC: 4S1 07:53 → 4E2 19:28